=== PATIENT | female | born 1965 | race Caucasian/White ===

== ENCOUNTER → 2016-10-22 | Day surgery (SDC) | payer OTHER ==
[~2016-10-22] MED LIST: IV RINGERS,LACTATED 1000ML 1,000 ML IV SCH; PROPOFOL 20 ML IV ONE
[2016-10-22 09:08] VITALS: BP 112/68
--- NOTE | 2016-10-23 02:41 | CONS ---
DATE OF CONSULTATION: 10/22/2016 REFERRING PHYSICIAN: ____. REASON FOR CONSULTATION: Rectal bleeding. HISTORY OF PRESENT ILLNESS: A 51-year-old female whose past medical history is significant for hypothyroidism, fibromyalgia, is seen with left lower quadrant and left upper quadrant pain associated with rectal bleeding. CT done has revealed colitis, which has been successfully treated with antibiotics. Previous evaluations in the past have been unrevealing. There are no extraintestinal manifestations of IBD at this time. She has been started on a gluten-free diet with some improvement in her fibromyalgia symptoms. With continued bleeding, she requests additional evaluation. PAST MEDICAL HISTORY: Hypothyroidism, fibromyalgia. PAST SURGICAL HISTORY: She is status post tonsillectomy, D and C, and vaginal repair surgery. ALLERGIES: SULFA, SHELLFISH, CODEINE, LEVOFLOXACIN. MEDICATIONS: At the present time are gabapentin 1 daily and probiotics. SOCIAL HISTORY: She is a social drinker, nonsmoker. FAMILY HISTORY: Significant for colon polyps with sibling and uncle and mother and history of organic heart disease. REVIEW OF SYSTEMS: Per records. PHYSICAL EXAMINATION: GENERAL: Reveals a well-nourished, well-developed female. VITAL SIGNS: Temp is 97.2, pulse is 90, respirations 18. HEENT: Reveals a normocephalic, atraumatic head. Pupils and extraocular muscles not tested. Sclerae anicteric. NECK: Supple. LUNGS: Clear. CARDIOVASCULAR: Reveals S1, S2 without S3, S4 or appreciable murmur. ABDOMEN: Reveals a soft abdomen, normal bowel sounds, without appreciable hepatosplenomegaly. EXTREMITIES: Reveals no cyanosis, clubbing or edema. IMPRESSION: Rectal bleeding with pain. The etiology is to be determined. Differential includes malignancy, inflammatory bowel disease, ischemic colitis, infectious colitis as well as fissures. PLAN: We will recommend colonoscopy. Risks and benefits of the procedure including the risk of hemorrhage or perforation have been discussed with the patient who is willing to proceed at this time. I thank ____ for allowing us to consult and participate in this patient's care. JOVAN BRASWELL MD DR: PRINCESS/vanita JOB#: [id number] / [id number]
== END | disposition home or self-care (01) ==
LOC: ENDOS 06:55
PROVIDERS: ATTEND Internal Medicine Gastroenterology
DX: K64.0 First degree hemorrhoids (principal); E03.9 Hypothyroidism, unspecified; Z86.39 Personal history of other endocrine, nutritional and metabolic disease; Z72.89 Other problems related to lifestyle; Z87.442 Personal history of urinary calculi; Z88.2 Allergy status to sulfonamides; Z88.8 Allergy status to other drugs, medicaments and biological substances; Z88.6 Allergy status to analgesic agent; Z91.013 Allergy to seafood
CPT/HCPCS: 45378; J2704

== ENCOUNTER → 2017-12-30 | Outpatient (CLI) | payer OTHER ==
[2016-10-22 09:08] VITALS: BP 112/68
[~2017-12-30] MED LIST changes: +GADOBUTROL 7.5 MMOL/7.5 ML VIAL IV ONE; -IV RINGERS,LACTATED 1000ML 1,000 ML IV SCH; +LEVO25TA55 PO; -PROPOFOL 20 ML IV ONE
--- NOTE | 2017-12-30 11:03 | KCIC ---
MRI Brain with and without contrast History: Neuropathic symptoms, left side pain Technique: Multiplanar, multi sequential pre and postcontrast MR imaging was performed of the brain. Contrast: 7 cc Gadavist Comparison: None Findings: There is mild motion. There is no evidence of recent infarct or cytotoxic edema. The ventricles, sulci, and cisterns are within normal limits in size and configuration. There is no significant midline shift, intraaxial mass effect, or focal abnormal extra-axial fluid collection. There is no significant signal abnormality of the brain parenchyma. There is no nodular parenchymal or leptomeningeal enhancement. There is preservation of the major intracranial flow-voids at the skull base. The cerebellar tonsils are normal in location. There is no significant abnormality of the pineal gland or pituitary gland. Paranasal sinuses are overall aerated. The mastoid air cells are aerated. There is preserved marrow signal of the clivus. Impression: 1. There is no significant intracranial abnormality. Electronically signed by: Celestino Soliz MD (12/30/2017 11:00 AM) [id number]
== END | disposition home or self-care (01) ==
LOC: KCIC MRI 09:09
PROVIDERS: ATTEND Family Medicine
DX: R51 Headache (principal); E03.9 Hypothyroidism, unspecified
CPT/HCPCS: 70553; A9585